=== PATIENT | female | born 1975 | race Hispanic/Latino ===

== ENCOUNTER 2022-08-08 10:56 | Emergency (ER) | payer OTHER ==
[~2022-08-08] VITALS: Ht 160 cm; Wt 86.2 kg
[2022-08-08] MEDS ORDERED: LABETALOL 20MG SYG IV ONE (11:30)
[2022-08-08 11:50] LABS: BASOPHILS % (AUTO) 1.1 % (0.0-5.0); EOSINOPHILS % (AUTO) 1.1 % (0.0-8.0); HEMATOCRIT 35.7 % (36-48); LYMPHOCYTES % (AUTO) 35.9 % (21.0-51.0); MEAN CORPUSCULAR HEMOGLOBIN 22.6 pg (27.0-33.0); MEAN CORPUSCULAR HGB CONC 30.8 g/dL (32.0-36.0); MEAN CORPUSCULAR VOLUME 73.5 fL (79-99); MONOCYTES % (AUTO) 7.6 % (3.0-13.0); NEUTROPHILS % (AUTO) 54.2 % (40.0-77.0); PLATELET COUNT (AUTO) 250 K/uL (130-400); RED BLOOD CELL COUNT(AUTO) 4.86 MIL/uL (4.00-5.50); RED CELL DISTRIBUTION WIDTH 18.7 % (11.0-15.5); WHITE BLOOD COUNT (AUTO) 7.1 K/uL (4.8-10.8)
[2022-08-08 12:04] LABS: ALBUMIN 3.8 g/dL (3.5-5.0); CREATININE 0.6 mg/dL (0.5-1.5); POTASSIUM 3.5 mmol/L (3.5-5.1); TOTAL PROTEIN, SERUM 7.8 g/dL (6.0-8.3)
[2022-08-08 12:33] LABS: HCG,QUALITATIVE URINE NEGATIVE (NEGATIVE)
[2022-08-08 12:40] LABS: BILIRUBIN,URINE NEGATIVE (NEGATIVE); GLUCOSE, URINE (UA) NEGATIVE (NEGATIVE); KETONES,URINE NEGATIVE (NEGATIVE); LEUKOCYTE ESTERASE ,URINE NEGATIVE Leu/uL (NEGATIVE); NITRATE,URINE NEGATIVE (NEGATIVE); OCCULT BLOOD,URINE LARGE (NEGATIVE); PROTEIN,URINE 100 mg/dL (NEGATIVE); UROBILINOGEN,URINE 0.2 mg/dL (0.2-1.0)
[2022-08-08 12:56] LABS: RBC,URINE TNTC /HPF (0-1)
[2022-08-08 12:57] LABS: BACTERIA,URINE Moderate /HPF (None Seen); WBC,URINE 0-1 /HPF (0-1)
[2022-08-08 12:58] LABS: APPEARANCE,URINE CLOUDY (CLEAR)
[2022-08-08 12:59] LABS: COLOR,URINE RED (YELLOW)
[2022-08-08] MEDS ORDERED: AMLO1CAP6 PO (14:02)
[2022-08-08 14:15] VITALS: BP 146/87
== END 2022-08-08 14:17 | disposition home or self-care (01) ==
LOC: EDH 10:56
DX: I10 Essential (primary) hypertension (principal); R51.9 Headache, unspecified; Z88.0 Allergy status to penicillin
CPT/HCPCS: 36415; 70450; 71045; 80053; 81001; 81025; 84484; 85025; 87088; 93005; 96374

== ENCOUNTER 2024-05-16 08:53 | Emergency (ER) | payer SELFPAY ==
[~2024-05-16] VITALS: Ht 160 cm; Wt 92.5 kg
[~2024-05-16 08:53] MED LIST: AMLO1CAP6 PO
[2024-05-16 09:58] LABS: BASOPHILS # (AUTO) 0.06 K/uL (0.00-0.20); BASOPHILS % (AUTO) 0.8 % (0.0-5.0); EOSINOPHILS # (AUTO) 0.08 K/uL (0.00-0.70); EOSINOPHILS % (AUTO) 1.1 % (0.0-8.0); HEMATOCRIT 38.6 % (36-48); IMMATURE GRANULOCYTE ABSOLUTE 0.01 K/uL (0-1); LYMPHOCYTES # (AUTO) 2.6 K/uL (1.0-4.8); LYMPHOCYTES % (AUTO) 35.9 % (21.0-51.0); MEAN CORPUSCULAR HEMOGLOBIN 25.6 pg (27.0-33.0); MEAN CORPUSCULAR HGB CONC 32.1 g/dL (32.0-36.0); MEAN CORPUSCULAR VOLUME 79.6 fL (79-99); MONOCYTES # (AUTO) 0.5 K/uL (0.1-1.0); MONOCYTES % (AUTO) 7.5 % (3.0-13.0); NEUTROPHILS # (AUTO) 3.9 K/uL (1.8-7.7); NEUTROPHILS % (AUTO) 54.6 % (40.0-77.0); PLATELET COUNT (AUTO) 266 K/uL (130-400); RED BLOOD CELL COUNT(AUTO) 4.85 MIL/uL (4.00-5.50); RED CELL DISTRIBUTION WIDTH 17.5 % (11.0-15.5); WHITE BLOOD COUNT (AUTO) 7.2 K/uL (4.8-10.8)
[2024-05-16 10:08] LABS: CREATININE 0.6 mg/dL (0.5-1.0); POTASSIUM 3.9 mmol/L (3.5-5.1)
[2024-05-16 10:56] LABS: APPEARANCE,URINE CLOUDY (CLEAR); BILIRUBIN,URINE NEGATIVE (NEGATIVE); COLOR,URINE LIGHT-YELLOW (YELLOW); GLUCOSE, URINE (UA) NEGATIVE (NEGATIVE); KETONES,URINE NEGATIVE (NEGATIVE); LEUKOCYTE ESTERASE ,URINE NEGATIVE Leu/uL (NEGATIVE); NITRATE,URINE NEGATIVE (NEGATIVE); OCCULT BLOOD,URINE SMALL (NEGATIVE); PROTEIN,URINE NEGATIVE (NEGATIVE); UROBILINOGEN,URINE 0.2 mg/dL (0.2-1.0)
[2024-05-16 11:03] LABS: ADD UA MICROSCOPIC YES
[2024-05-16 11:04] LABS: MUCUS,URINE RARE LPF (None Seen); SQUAMOUS EPITHELIAL CELL,UR MOD /HPF (0-2)
[2024-05-16] MEDS ORDERED: IOHEXOL 350 MG/ML 100ML INFUS..BTL IV ONE (11:34)
--- NOTE | 2024-05-16 11:48 | ERN ---
General Chief Complaint: Bloody Stool Stated Complaint: BLOODY STOOLS Time Seen by MD: 08:55 History of Present Illness Initial Comments 48-year-old female who presents for bright red blood per rectum for the last three days. Initially she had some watery diarrhea. Since then she has had normal stools but she reports some bright red blood per rectum. No melena. No clotting. She does have a history of chronic constipation and she has been using a glycerin suppository. Denies any cramping, nausea and vomiting, fevers or any other systemic illness. Allergies: Coded Allergies: Penicillins (Unverified Allergy, Unknown, 08/08/22) Home Meds Active Scripts Amlodipine Besylate/Benazepril (Lotrel 5-20 mg Capsule) 1 Each Capsule, 1 EACH PO DAILY for 14 Days, #14 CAP Prov:DALLAS WAN MD 08/08/22 Past Medical History Past Medical History: Constipation, Hypertension Past Surgical History: Social History Social History: Negative Female( History) LMP: Apr 04, 2024 ROS Dictation CONSTITUTIONAL: No chills, no fever, no weakness, no diaphoresis, no malaise. HEAD/FACE: No signs of trauma. EENT: No eye pain, no blurred vision, no tearing, no double vision, no ear pain, no ear discharge, no nose pain, no nasal congestion, no throat pain, no throat swelling, no mouth pain. RESPIRATORY: No cough, no orthopnea, no SOB, no stridor, no wheezing. CARDIOVASCULAR: No chest pain, no edema, no palpitations, no syncope. GASTROINTESTINAL/ABDOMINAL: Constipation, bright red blood per rectum GENITOURINARY: No abnormal discharge, no dysuria, no frequent urination, no hematuria. No complaints of pain in the genitals. MUSCULOSKELETAL: No back pain, no gout, no joint pain, no joint swelling, no muscle pain, no muscle stiffness, no neck pain. INTEGUMENTARY: No change in color, no change in hair/nails, no dryness, no lesion, no lumps, no rash. NEUROLOGICAL/PSYCH: No anxiety, not depressed, no emotional problem, no headache, no numbness, no pre-existing deficit, no history of seizures, no tremors, no weakness. HEMATOLOGIC/LYMPHATIC: Not anemic, no history of blood clots, no apparent bleeding, no bruising, glands not swollen. All Systems Negative, Except as Noted. Physical Exam Physical Exam Dictation VITAL SIGNS: Reviewed. GENERAL APPEARANCE: Alert, oriented x3, no acute distress, obese. HEAD AND FACE: Non-traumatic. EYES: PERRL, pink conjunctivas, eyelid no trauma, anterior chamber clear. EARS: Pinnas intact and no signs of trauma or erythema. Ear canals clear and no discharge. TMs no erythema. NOSE: No discharge, no bleeding. OROPHARYNX: Mouth normal, teeth no caries, tongue pink. Pharynx clear, no erythema. Tonsils no exudates, no abscesses noted. Mucous membrane moist. NECK: Supple, non-tender, no thyromegaly, no masses, no JVD, no bruits. BREAST: Deferred. CHEST: No tenderness, no crepitus, no paradoxical movement, no retractions. LUNGS: Clear, well-ventilated, symmetric, no rales, no wheezing, no rhonchi, no stridor, good breath sounds bilaterally. HEART: Regular rate, regular rhythm, no murmur, no gallops. VASCULAR: No peripheral edema. ABDOMEN: Soft, positive bowel sounds, nondistended, no guarding, nontender, no rebound, no masses no hepatomegaly, no splenomegaly, no Kumar's sign, no hernias. RECTAL: Deferred. GENITAL: Deferred. NEUROLOGICAL: Normal speech, gross motor function intact, gross sensory function intact. MUSCULOSKELETAL: Neck nontender, full range of motion, back nontender, full range of motion. EXTREMITIES: Nontender, full range of motion. SKIN: Color pink, dry, no turgor, no rash, no lacerations, no abrasions, no contusions. LYMPHATICS: Deferred. Results Laboratory and Microbiology Lab and Micro Result Laboratory Tests Test 05/16/24 09:35 05/16/24 09:42 White Blood Count 7.2 K/uL (4.8-10.8) Red Blood Count 4.85 MIL/uL (4.00-5.50) Hemoglobin 12.4 g/dL (12.0-16.0) Hematocrit 38.6 % (36-48) Mean Corpuscular Volume 79.6 fL (79-99) Mean Corpuscular Hemoglobin 25.6 pg (27.0-33.0) L Mean Corpuscular Hemoglobin Concent 32.1 g/dL (32.0-36.0) Red Cell Distribution Width 17.5 % (11.0-15.5) H Platelet Count 266 K/uL (130-400) Mean Platelet Volume 11.5 fL (7.5-10.5) H Immature Granulocyte % (Auto) 0.1 % (0-1) Neutrophils (%) (Auto) 54.6 % (40.0-77.0) Lymphocytes (%) (Auto) 35.9 % (21.0-51.0) Monocytes (%) (Auto) 7.5 % (3.0-13.0) Eosinophils (%) (Auto) 1.1 % (0.0-8.0) Basophils (%) (Auto) 0.8 % (0.0-5.0) Neutrophils # (Auto) 3.9 K/uL (1.8-7.7) Lymphocytes # (Auto) 2.6 K/uL (1.0-4.8) Monocytes # (Auto) 0.5 K/uL (0.1-1.0) Eosinophils # (Auto) 0.08 K/uL (0.00-0.70) Basophils # (Auto) 0.06 K/uL (0.00-0.20) Absolute Immature Granulocyte (auto 0.01 K/uL (0-1) Nucleated Red Blood Cells 0.0 % (0.0-0.19) Sodium Level 138 mmol/L (136-145) Potassium Level 3.9 mmol/L (3.5-5.1) Chloride Level 102 mmol/L (101-111) Carbon Dioxide Level 28 mmol/L (21-32) Blood Urea Nitrogen 13 mg/dL (7-18) Creatinine 0.6 mg/dL (0.5-1.0) Glomerular Filtration Rate Calc 111 mL/min (>90) Random Glucose 100 mg/dL (70-105) Total Calcium 8.8 mg/dL (8.5-10.1) Urine Color LIGHT-YELLOW (YELLOW) Urine Appearance CLOUDY (CLEAR) H Urine pH 7.0 (5.0-8.0) Urine Specific Eva 1.015 (1.001-1.031) Urine Protein NEGATIVE mg/dL (NEGATIVE) Urine Glucose (UA) NEGATIVE mg/dL (NEGATIVE) Urine Ketones NEGATIVE mg/dL (NEGATIVE) Urine Occult Blood SMALL (NEGATIVE) H Urine Nitrate NEGATIVE (NEGATIVE) Urine Bilirubin NEGATIVE mg/dL (NEGATIVE) Urine Urobilinogen 0.2 mg/dL (0.2-1.0) Urine Leukocyte Esterase NEGATIVE Jose Carlos/uL Urine RBC 2-5 /HPF (0-1) H Urine WBC 2-5 /HPF (0-1) H Urine Squamous Epithelial Cells MOD /HPF (0-2) Urine Bacteria None /HPF (None Seen) MDM CC: Constipation, bloody stool, abdominal cramping x3 day Historian: Patient Comorbidities: Constipation, hypertension Vital signs: Hypertension otherwise stable. Clinical exam is unremarkable. Soft nontender nondistended abdomen. Nontoxic in appearance. Differential diagnosis: Hemorrhoids, lower GI bleed, diverticular bleed, inflammatory bowel disease, anemia, other. No clinical signs of upper GI bleed based on the history and presentation. Labs ( independently ordered and interpreted by me ): No leukocytosis, no anemia. Chemistry panel is unremarkable. Urinalysis unremarkable. CT scan of the abdomen and pelvis with contrast (independently interpreted by me ): No obvious signs of GI bleed. No major constipation. No free air. Plan: will DC with hemorrhoid cream she was it does have an external hemorrhoid that is not actually bleeding. We will also give some GoLYTELY for constipation to use as needed. We will recommend GI follow up. Patient agrees with the plan. ED Course Orders Procedure Category Date Status Time Cbc With Differential LAB 05/16/24 Complete 09:02 Ct Abdomen/Pelvis CT 05/16/24 Resulted W/Contrast 09:02 Basic Metabolic Panel LAB 05/16/24 Complete 09:02 Urinalysis Profile LAB 05/16/24 Complete 10:42 Iohexol (Omnipaque) PHA 05/16/24 Complete 11:34 Current Medications Medications (Trade) Dose Ordered Sig/Mya Route PRN Reason Start Time Stop Time Status Last Admin Dose Admin Iohexol (Omnipaque) 35,000 mg STK-MED ONCE IV 05/16/24 11:34 05/16/24 11:39 DC Vital Signs Date Time Temp Pulse Resp B/P (MAP) Pulse Ox O2 Delivery O2 Flow Rate FiO2 05/16/24 11:45 98.1 66 16 170/92 100 Room Air* 0 21 05/16/24 08:54 98.1 83 16 188/116 99 Room Air 0 DX & DISP Disposition: Discharge Departure Impression: Primary Impression: BRBPR (bright red blood per rectum) Additional Impressions: Constipation, External hemorrhoid Condition: Stable Scripts Hydrocortisone (Preparation H) 1 % Cream..g. 1 APPL TP BID for 10 Days, #26 GM 0 Refills Prov: ALEC GUERRERO DO 05/16/24 Polyethylene Glycol 3350 (Miralax) 17 Gram Powd.pack 1 PACKET PO BID for constipation, #30 PACKET 0 Refills dissolve in water Prov: ALEC GUERRERO DO 05/16/24 Additional Instructions: You have a lower GI bleed, or bright red blood per rectum. There are no dangerous findings on your workup here today. Your vital signs are stable. Your blood work (CBC,) is stable. The CT scan of your abdomen and pelvis shows no acute abnormalities. For your constipation, I have prescribed MiraLax. You can take this up to twice per day as needed. I have prescribed a hydrocortisone cream for hemorrhoids. Apply this twice per day as needed. Increase your fiber intake (fruits, vegetables, whole grains). Drink plenty of water. I recommend at least eight glasses of water (64 oz) per day. Try to avoid straining during bowel movements. Do not sit on the toilet for prolonged periods of times. I recommend taking warm Sitz baths as much as possible. As we discussed, lower GI bleeding is often not dangerous but there can be dangerous causes. You will likely need a colonoscopy. Please follow up with the GI specialist. I have given you a referral to Dr. Barraza. Return to the emergency department if you have any concerning symptoms. Referrals: NONE (PCP) JENNIFER BARRAZA MD, RYAN E DO May 16, 2024 11:48
--- NOTE | 2024-05-16 12:16 | HMCIMG ---
CT ABDOMEN/PELVIS W/CONTRAST REASON: bloody stool, pain COMPARISON: None. TECHNIQUE: Images are obtained from lung bases to symphysis pubis following IV contrast, 100 cc Omnipaque 350. FINDINGS: Lung bases are clear. There is marked hepatic steatosis.. There are normal-appearing kidneys.. Spleen and pancreas appear unremarkable. The gallbladder appears normal as well. Bowel loops appear unremarkable. This includes normal appearance of the appendix There is no evidence of free fluid or intraperitoneal air. There are no focal fluid collections. Aorta and retroperitoneum appear normal. Uterus appears enlarged. There is diffuse nodularity of the uterus consistent with multiple fibroids, there are 2 fibroids present in the posterior myometrium each between 2.5 and 3 cm. Pelvic soft tissues appear otherwise unremarkable. The anterior abdominal wall is intact. Osseous structures appear unremarkable. IMPRESSION: 1. Enlarged uterus with multiple fibroids. 2. Marked hepatic steatosis. 3. Otherwise unremarkable exam, no etiology identified for GI bleeding. CT was performed with one or more following dose reduction techniques: automated exposure control, adjustment of the mA and kv according to patient's size, or use of a iterative reconstruction technique.
[2024-05-16] MEDS ORDERED: HYDR26CR2 TP (13:00)
[2024-05-16] MEDS ORDERED: POLY17PO4 PO (13:00)
[2024-05-16 13:26] VITALS: BP 132/84; PULSE 68; RESP 16; TEMP 98.1; O2SAT 99
== END 2024-05-16 13:32 | disposition home or self-care (01) ==
LOC: EDH 08:53
DX: K62.5 Hemorrhage of anus and rectum (principal); K59.00 Constipation, unspecified; K64.4 Residual hemorrhoidal skin tags; I10 Essential (primary) hypertension; Z88.0 Allergy status to penicillin
CPT/HCPCS: 99285; 74177; 80048; 85025; 81001; 36415; Q9967